=== PATIENT | female | born 1975 ===

== ENCOUNTER 2018-03-17 15:14 | Emergency (ER) | payer OTHER ==
[2018-03-17 15:19] VITALS: BP 124/85; PULSE 86; RESP 18; TEMP 98; O2SAT 98
--- NOTE | 2018-03-17 15:47 | C.PDOC ---
History Of Present Illness 42yo female with no past medical history, presents to ER for evaluation of left ankle pain and swelling since yesterday, after a heavy object fell on her ankle. She has been using an Akshat wrap with mild relief of the swelling. She denies any numbness or tingling to her left lower extremity. Patient has no other medical complaints. PMD: Dr. Fishman Time Seen by Provider: 03/17/18 15:26 Chief Complaint (Nursing): Lower Extremity Problem/Injury History Per: Patient History/Exam Limitations: no limitations Onset/Duration Of Symptoms: Days Current Symptoms Are (Timing): Still Present Additional History Per: Patient - Ankle/Foot Description Of Injury: Struck With Object Past Medical History Reviewed: Historical Data, Nursing Documentation, Vital Signs Vital Signs: Last Vital Signs Temp 98.0 F 03/17/18 15:17 Pulse 86 03/17/18 15:17 Resp 18 03/17/18 15:17 BP 124/85 03/17/18 15:17 Pulse Ox 98 03/17/18 15:49 - Medical History PMH: No Chronic Diseases Surgical History: No Surg Hx Family History: States: No Known Family Hx - Social History Hx Tobacco Use: No Hx Alcohol Use: No Hx Substance Use: No Review Of Systems Musculoskeletal: Positive for: Foot Pain (left ankle pain and swelling) Neurological: Negative for: Weakness, Numbness Physical Exam - Physical Exam Appears: Non-toxic, No Acute Distress Skin: Normal Color, Warm, Dry Chest: Symmetrical Cardiovascular: Rhythm Regular Respiratory: Normal Breath Sounds Extremity: Normal ROM (FROM of left ankle, including plantar flexion and dorsiflexion.), Tenderness (tenderness to left medial malleolus), No Deformity, Swelling (swelling to left ankle) Pulses: Left Dorsalis Pedis: Normal Neurological/Psych: Oriented x3 ED Course And Treatment O2 Sat by Pulse Oximetry: 98 (RA) Pulse Ox Interpretation: Normal Medical Decision Making Medical Decision Making: Impression: Left ankle pain and swelling Plan: -- XR Left ankle -- Motrin 600 mg PO -- Ice pack Progress: Disposition Counseled Patient/Family Regarding: Studies Performed, Diagnosis, Need For Followup - Disposition Referrals: Rea Singh DPM [Staff Provider] - Disposition: HOME/ ROUTINE Disposition Time: 15:53 Condition: STABLE Additional Instructions: Ms. Manjarrez, thank you for letting us take care of you today. Return to the ER if your symptoms worsen, or if any problems. I would recommend no weight bearing for the next 3 days. You could return to work on March 20. Follow up with our city marshal Dr. Rea Singh--call to make an appointment. Take Motrin or Tylenol for pain. Apply a cold pack as well for additional pain relief. I did not see a fracture on your xrays. Your xrays still need to be reviewed by radiology; if they see a fracture, you will be contacted. Prescriptions: Ibuprofen [Motrin] 1 tab PO Q8 PRN #30 tab PRN Reason: Pain, Moderate (4-7) Instructions: Contusion (DC), Ankle Sprain Forms: Work Excuse, General Discharge Instructions Print Language: EQUATORIAL GUINEAN - POA Present On Arrival: None - Clinical Impression Clinical Impression: Contusion of ankle, left - Scribe Statement The provider has reviewed the documentation as recorded by the Scribe (Marcia Kelly) Provider Attestation: All medical record entries made by the Scribe were at my direction and personally dictated by me. I have reviewed the chart and agree that the record accurately reflects my personal performance of the history, physical exam, medical decision making, and the department course for this patient. I have also personally directed, reviewed, and agree with the discharge instructions and disposition.
--- NOTE | 2018-03-17 16:48 | RAD ---
PROCEDURE: Left Ankle Radiographs. HISTORY: Heavy item fell on left ankle ([employer] employee) COMPARISON: None FINDINGS: BONES: Normal. No fracture. JOINTS: Normal. No osteoarthritis. Ankle mortise maintained. Talar dome intact SOFT TISSUES: Soft tissue swelling. No tibial or fibular fracture identified OTHER FINDINGS: None. IMPRESSION: Soft tissue swelling without acute articular or osseous abnormality. Concordant results with the preliminary interpretation rendered by the emergency department physician procedure.
== END 2018-03-17 16:25 | disposition home or self-care (01) ==
LOC: C.ER 15:14
DX: S90.02XA Contusion of left ankle, initial encounter (principal); W22.8XXA Striking against or struck by other objects, initial encounter